=== PATIENT | female | born 1985 | race Two or more races ===

== ENCOUNTER 2023-03-25 15:09 | Emergency (ER) | payer MEDICAID, OTHER ==
[~2023-03-25] VITALS: Ht 157.5 cm; Wt 91.0 kg
[2023-03-25 15:20] VITALS: BP 155/91; PULSE 100; RESP 18; O2SAT 95
[2023-03-25 16:12] LABS: Basophils # (auto) 0 10 ^3/uL (0-0.2); Eosinophils # (auto) 0.4 10 ^3/uL (0-0.8); Hemoglobin 13.8 g/dL (12.2-16.2); Lymphocytes # (auto) 2.2 10 ^3/uL (0.4-5.4); Mean Corpuscular Volume 81.4 fL (80.0-100.0); Neutrophils # (auto) 10.3 10 ^3/uL (1.6-8.6); Neutrophils % (auto) 75.9 % (37.0-80.0)
[2023-03-25 16:14] LABS: Basophils % (auto) 0.2 % (0.0-2.0); Eosinophils % (auto) 2.8 % (0.0-7.0); Hematocrit 42.1 % (36.0-46.0); Lymphocytes % (auto) 16.3 % (10.0-50.0); Mean Corpuscular Hemoglobin 26.6 pg (28.0-32.0); Mean Corpuscular Hgb Conc. 32.7 g/dL (32.0-36.0); Monocytes # (auto) 0.7 10 ^3/uL (0-1.3); Monocytes % (auto) 4.8 % (0.0-12.0); Nucleated Red Blood Cells % 0.2 %; Red Blood Cells 5.17 10^6/uL (4.0-5.20); Red Cell Distribution Width 14.9 % (11.8-14.3); White Blood Cell 13.6 10^3/uL (4.4-10.8)
[2023-03-25 16:19] LABS: Albumin 4.2 g/dL (3.4-5.0); Calcium 9.8 mg/dL (8.5-10.1); Potassium 3.9 mmol/L (3.5-5.1)
[2023-03-25 16:24] LABS: BUN/Creatinine Ratio 14.1 (10.0-20.0); Bilirubin, Total 0.8 mg/dL (0.2-1.0); Total Protein 7.8 g/dL (6.4-8.2)
[2023-03-25 18:07] LABS: Urine Bacteria NONE SEEN /hpf (None Seen); Urine Mucus FEW (None Seen); Urine WBC 6 /hpf (0 - 5)
[2023-03-25 19:10] LABS: Urine Clarity CLEAR (Clear); Urine Color Straw (Yellow); Urine Protein, UAD Negative (Negative)
[2023-03-25 19:11] LABS: Urine Blood Negative /uL (Negative); Urine Urobilinogen Normal (Negative); Urine pH 5 (5.0-8.0)
== END 2023-03-25 17:01 | disposition left against medical advice (07) ==
LOC: ER 15:19
DX: K52.9 Noninfective gastroenteritis and colitis, unspecified (principal)
CPT/HCPCS: 36415; 80053; 81001; 81025; 85025

== ENCOUNTER 2024-03-31 10:18 | Emergency (ER) | payer MEDICAID ==
[~2024-03-31] VITALS: Ht 157.5 cm; Wt 90.0 kg
[2024-03-31 11:04] VITALS: PULSE 106; RESP 24; O2SAT 100
[2024-03-31 11:09] LABS: Basophils # (auto) 0.1 10 ^3/uL (0-0.2); Basophils % (auto) 0.3 % (0.0-2.0); Eosinophils # (auto) 0.3 10 ^3/uL (0-0.8); Eosinophils % (auto) 1.9 % (0.0-7.0); Hematocrit 43.7 % (36.0-46.0); Hemoglobin 14.4 g/dL (12.2-16.2); Lymphocytes # (auto) 0.7 10 ^3/uL (0.4-5.4); Lymphocytes % (auto) 4.9 % (10.0-50.0); Mean Corpuscular Volume 81.8 fL (80.0-100.0); Monocytes # (auto) 0.4 10 ^3/uL (0-1.3); Monocytes % (auto) 2.5 % (0.0-12.0); Neutrophils # (auto) 13.5 10 ^3/uL (1.6-8.6); Neutrophils % (auto) 90.4 % (37.0-80.0); Nucleated Red Blood Cells % 0.1 %; Platelet Count (auto) 347 10^3/uL (140-450); Red Blood Cells 5.34 10^6/uL (4.0-5.20); Red Cell Distribution Width 16.1 % (11.8-14.3); White Blood Cell 14.9 10^3/uL (4.4-10.8)
[2024-03-31 11:20] LABS: Alanine Aminotransferase 16 U/L (7-40); Albumin 4.9 g/dL (3.2-4.8); Alkaline Phosphatase 138 U/L (46-116); Anion Gap 7 (5-15); Aspartate Aminotransferase 14 U/L (13-40); BUN/Creatinine Ratio 10.1 (10.0-20.0); Blood Urea Nitrogen 10 mg/dL (9-23); Calcium 9.7 mg/dL (8.7-10.4); Carbon Dioxide 24 mmol/L (20-30); Chloride 108 mmol/L (98-107); Glucose 107 mg/dL (74-106); Lipase 50 U/L (12-53); Potassium 3.9 mmol/L (3.5-5.1); Sodium 139 mmol/L (136-145)
[2024-03-31 11:21] LABS: Bilirubin, Total 0.9 mg/dL (0.2-1.0); Total Protein 8.1 g/dL (5.7-8.2)
[2024-03-31 11:58] LABS: Urine Bacteria FEW /hpf (None Seen); Urine Blood 1+ /uL (Negative); Urine Clarity Turbid (Clear); Urine Color Yellow (Yellow); Urine Mucus FEW (None Seen); Urine Protein, UAD 1+ (Negative); Urine Specific Gravity 1.035 (1.001-1.035); Urine Urobilinogen Normal (Negative); Urine WBC 4 /hpf (0 - 5); Urine pH 5.5 (5.0-9.0)
[2024-03-31] MEDS: SODIUM CHLORIDE 0.9% 1,000 ML IV ONE (12:37)
[2024-03-31] MEDS: KETOROLAC TROMETH 30 MG/ML 1ML VIAL IV ONE (12:37)
[2024-03-31] MEDS: ONDANSETRON HCL 4 MG/2 ML VIAL IV ONE (12:38)
[2024-03-31] MEDS: IOHEXOL 300 MG/ML 100ML BOTTLE IJ ONE (13:30)
[2024-03-31 14:19] VITALS: BP 106/70; PULSE 98; RESP 18; TEMP 98; O2SAT 96
== END 2024-03-31 15:33 | disposition left against medical advice (07) ==
LOC: ER 10:18
DX: N83.202 Unspecified ovarian cyst, left side (principal); R19.00 Intra-abdominal and pelvic swelling, mass and lump, unspecified site; R10.31 Right lower quadrant pain; Z98.890 Other specified postprocedural states; Z88.0 Allergy status to penicillin
CPT/HCPCS: 36415; 74177; 80053; 81001; 81025; 83690; 85025; 96361; 96374; 96375; 99285; J1885; J2405; J7030; Q9967